=== PATIENT | female | born 1930 | race Caucasian/White ===

== ENCOUNTER 2016-04-25 11:26 | Inpatient (IN) | payer OTHER ==
[2016-04-25] VITALS (12 sets, daily range): BP systolic 117–158; BP diastolic 53–81
[~2016-04-25] VITALS: Ht 170.2 cm; Wt 84.2 kg
[2016-04-25] MEDS ORDERED: NOVOLIN,HU100 UNITS/ SC ×2 (11:43→13:15)
[2016-04-25] MEDS ORDERED: COREG12.5 M1 PO (11:44)
[2016-04-25 12:49] LABS: HEMATOCRIT 23.1 % (36.0-46.0); MCH 28.8 PG (29.0-34.0); MCV 89.9 FL (83-99); MEAN PLAT.VOLUME 10.5 uM^3 (9.5-12.4); PLATELET COUNT 199 K/uL (156-360); RBC DIS.WIDTH-CV 14.9 % (11.8-14.6); RBC DIS.WIDTH-SD 47.7 % (39-53); RED BLOOD COUNT 2.57 M/uL (3.80-5.20); WHITE BLOOD COUNT 5.8 K/uL (4.1-10.2)
[2016-04-25 12:57] LABS: CHLORIDE 104 mEq/L (99-109); POTASSIUM 4.5 mEq/L (3.7-5.4); SODIUM 135 mEq/L (136-147)
[2016-04-25 12:59] LABS: GLUCOSE 145 mg/dL (70-99); INTER. NORMALIZED RATIO 1.1; PTT 24.5 (25-32)
[2016-04-25 13:00] LABS: ANION GAP 11 MEQ/L (2-14)
[2016-04-25 13:02] LABS: GFR ESTIMATE (CALCULATED) > 59 mL/min/
[2016-04-25 13:03] LABS: UREA NITROGEN (BUN) 21 mg/dL (9-23)
[2016-04-25 13:10] LABS: TROP-I INTERPRETATION NEGATIVE
[2016-04-25] MEDS ORDERED: SERTRALINE HCL50 MG PO (13:10)
[2016-04-25] MEDS ORDERED: FLONASE16 G1 BOTH NARES (13:11)
[2016-04-25] MEDS ORDERED: ZYRTEC10 M3 PO (13:11)
[2016-04-25] MEDS ORDERED: VITAMIN D31000 UNI1 PO (13:14)
[2016-04-25] MEDS ORDERED: TYLENOL EXTRA500 MG PO (13:14)
[2016-04-25 13:54] LABS: POINT-OF-CARE METER ID UU14100415
[2016-04-25 16:11] LABS: HEMATOCRIT 22.5 % (36.0-46.0); MCV 89.3 FL (83-99)
[2016-04-25 17:13] LABS: POINT-OF-CARE METER ID UU13113702; POINT-OF-CARE USER ID 608261302
[2016-04-25 22:31] LABS: TROP-I INTERPRETATION NEGATIVE; TROPONIN-I 0.18 ng/mL (0.0-0.30)
[2016-04-26 00:43] LABS: HEMATOCRIT 28.7 % (36.0-46.0)
[2016-04-26 03:29] VITALS: BP 124/62
[2016-04-26 05:35] LABS: HEMATOCRIT 29.4 % (36.0-46.0); MCV 88.8 FL (83-99)
[2016-04-26 06:22] LABS: ANION GAP 9 MEQ/L (2-14); CHLORIDE 104 MEQ/L (99-109); GFR ESTIMATE (CALCULATED) > 59 mL/min/; GLUCOSE 117 mg/dL (70-99); POTASSIUM 4.5 MEQ/L (3.7-5.4); SAMPLE HEMOLYSIS CHECK 0; SAMPLE ICTERIC CHECK 0; SAMPLE LIPEMIA CHECK 0; SODIUM 139 MEQ/L (136-147); UREA NITROGEN (BUN) 16 mg/dL (9-23)
[2016-04-26 06:31] LABS: TROP-I INTERPRETATION NEGATIVE; TROPONIN-I 0.14 ng/mL (0.0-0.30)
[2016-04-26 06:44] LABS: POINT-OF-CARE METER ID UU14149397
[2016-04-26 07:17] VITALS: BP 120/64
[2016-04-26 10:58] LABS: TROP-I INTERPRETATION NEGATIVE; TROPONIN-I 0.12 ng/mL (0.0-0.30)
[2016-04-26 11:23] VITALS: BP 133/63
[2016-04-26 11:27] LABS: POINT-OF-CARE METER ID UU14149397
[2016-04-26 11:40] LABS: POINT-OF-CARE METER ID UU13113694
[2016-04-26 12:40] LABS: POINT-OF-CARE METER ID UU13113819
[2016-04-26 15:04] LABS: HEMATOCRIT 28.1 % (36.0-46.0); MCV 88.9 FL (83-99)
[2016-04-26 15:18] VITALS: BP 125/62
[2016-04-26 15:32] LABS: TROP-I INTERPRETATION NEGATIVE; TROPONIN-I 0.13 ng/mL (0.0-0.30)
[2016-04-26 16:18] LABS: POINT-OF-CARE METER ID UU13113717
[2016-04-26 19:11] LABS: TROP-I INTERPRETATION NEGATIVE; TROPONIN-I 0.11 ng/mL (0.0-0.30)
[2016-04-26 19:51] VITALS: BP 152/65
[2016-04-26 20:24] LABS: POINT-OF-CARE METER ID UU14149397
[2016-04-26 22:35] LABS: HEMATOCRIT 28.4 % (36.0-46.0); MCV 88.2 FL (83-99)
[2016-04-26 23:00] LABS: TROP-I INTERPRETATION NEGATIVE; TROPONIN-I 0.13 ng/mL (0.0-0.30)
[2016-04-27 00:10] VITALS: BP 118/58
[2016-04-27 04:00] VITALS: BP 126/58
[2016-04-27 07:07] LABS: BASOPHIL COUNT 0.1 K/uL (0-0.1); EOSINOPHIL (%) 1.3 % (0-5); EOSINOPHIL COUNT 0.1 K/uL (0-0.3); HEMATOCRIT 27.4 % (36.0-46.0); IMMATURE GRANULOCYTE (%) 0.2 % (0.0-0.7); LYMPHOCYTE COUNT 1.1 K/uL (1.0-2.8); MCH 28.9 PG (29.0-34.0); MCHC 32.1 G/DL (30.0-36.0); MCV 89.8 FL (83-99); MEAN PLAT.VOLUME 11.2 uM^3 (9.5-12.4); MONOCYTE (%) 13.4 % (3-12); MONOCYTE COUNT 0.7 K/uL (0-0.8); NEUTROPHIL (%) 64.5 % (45-76); NEUTROPHIL COUNT 3.6 K/uL (1.8-6.4); PLATELET COUNT 196 K/uL (156-360); RBC DIS.WIDTH-CV 14.9 % (11.8-14.6); RBC DIS.WIDTH-SD 48.7 % (39-53); RED BLOOD COUNT 3.05 M/uL (3.80-5.20); WHITE BLOOD COUNT 5.5 K/uL (4.1-10.2)
[2016-04-27 07:19] LABS: ANION GAP 8 MEQ/L (2-14); CHLORIDE 105 MEQ/L (99-109); GFR ESTIMATE (CALCULATED) > 59 mL/min/; GLUCOSE 152 mg/dL (70-99); POTASSIUM 3.9 MEQ/L (3.7-5.4); SAMPLE HEMOLYSIS CHECK 0; SAMPLE ICTERIC CHECK 0; SAMPLE LIPEMIA CHECK 0; SODIUM 137 MEQ/L (136-147); UREA NITROGEN (BUN) 16 mg/dL (9-23)
[2016-04-27 07:21] LABS: POINT-OF-CARE METER ID UU14149397
[2016-04-27 08:14] VITALS: BP 130/94
[2016-04-27 11:00] VITALS: BP 123/59
[2016-04-27 12:27] LABS: POINT-OF-CARE METER ID UU13113717
[2016-04-27 15:01] LABS: HEMATOCRIT 27.9 % (36.0-46.0); MCV 89.1 FL (83-99)
[2016-04-27 16:10] VITALS: BP 145/65
[2016-04-27 16:25] LABS: POINT-OF-CARE METER ID UU13113717
[2016-04-27 22:01] LABS: POINT-OF-CARE METER ID UU13113717
[2016-04-27 22:45] LABS: HEMATOCRIT 27.7 % (36.0-46.0); MCV 88.8 FL (83-99)
[2016-04-27 23:43] VITALS: BP 128/63
[2016-04-28 03:47] VITALS: BP 158/70
[2016-04-28 06:10] LABS: HEMATOCRIT 28.7 % (36.0-46.0); MCV 89.4 FL (83-99)
[2016-04-28 06:36] LABS: POINT-OF-CARE METER ID UU13113717
[2016-04-28 07:32] VITALS: BP 137/63
[2016-04-28 11:43] VITALS: BP 131/58
[2016-04-28 14:11] LABS: POINT-OF-CARE METER ID UU13113694
[2016-04-28] MEDS ORDERED: IRON325 M1 PO (16:00)
[2016-04-28] MEDS ORDERED: PROTONIX40 MG PO (16:01)
[2016-04-28 16:14] VITALS: BP 168/68
== END 2016-04-28 17:52 | disposition home or self-care (01) | DRG 378 ==
LOC: EME 11:26 → EDOF 13:36 → 3EAST 13:36 → EDOF 14:20 → 3EAST 22:59
PROVIDERS: Emergency Medicine; Hospitalist; Student in an Organized Health Care Education/Training Program
DX: K92.2 Gastrointestinal hemorrhage, unspecified (principal); D62 Acute posthemorrhagic anemia; K20.9 Esophagitis, unspecified; K29.70 Gastritis, unspecified, without bleeding; K63.5 Polyp of colon; K64.4 Residual hemorrhoidal skin tags; K64.8 Other hemorrhoids; E87.1 Hypo-osmolality and hyponatremia; E11.65 Type 2 diabetes mellitus with hyperglycemia; F32.9 Major depressive disorder, single episode, unspecified; I10 Essential (primary) hypertension; E78.5 Hyperlipidemia, unspecified; Z79.4 Long term (current) use of insulin; Z87.891 Personal history of nicotine dependence
CPT/HCPCS: 71020; 80048; 82948; 83605; 84484; 85014; 85018; 85025; 85027; 85610; 85730; 86850; 86870; 86900; 86901; 86920; 88305; 93005; 94799; 99281; 99285; B4087; C9113; J1815; J3010; P9016